=== PATIENT | female | born 1935 | race Caucasian/White ===

== ENCOUNTER 2024-05-28 06:03 | Day surgery (SDC) | payer MEDICARE, SELFPAY ==
[2024-05-13 08:43] VITALS: BMI 32.9
[2024-05-28] VITALS (15 sets, daily range): BP systolic 133–190; BP diastolic 60–95; PULSE 60–88; RESP 12–18; TEMP 35.8–36.8; O2SAT 94–98; BMI 32.5
--- NOTE | 2024-05-28 06:00 | DI.RAD.S_ITS ---
PROCEDURE: XR KNEE LT 1TO2V INDICATIONS: TKA TECHNIQUE: 2 view(s) of the knee acquired. COMPARISON: None. FINDINGS: Bones: Patient is status post knee joint arthroplasty. Hardware components are in expected positions. Visualized bony structures are intact. Soft tissues: Overlying postoperative changes are noted. IMPRESSION: Expected post-operative appearance of a knee arthroplasty. Dictated by: David Albarran M.D. on 05/28/2024 at 14:35 Approved by: David Albarran M.D. on 05/28/2024 at 14:35
[2024-05-28] MEDS: ACETAMINOPHEN 325 MG TABLET 975 MG PO (06:56)
[2024-05-28] MEDS: LACTATED RINGERS 1,000 ML 42 ML IV ×2 (06:57→08:57)
[2024-05-28] MEDS: VANCOMYCIN 1,000 MG/200 ML PIGGYBACK 200 MG IV (06:57)
--- NOTE | 2024-05-28 07:37 | PM.PREOP ---
Pre-operative Note Interval Note History & Physical reviewed/Exam performed by Physician: Yes Changes to H&P: No
--- NOTE | 2024-05-28 07:44 | PM.OP.1 ---
Operative Date/Time/Diagnoses Date of procedure: 05/28/24 Time of procedure: 07:44 Pre-op diagnosis: left knee OA Post-op diagnosis: same Procedure & Clinicians Procedure: Left total knee arthroplasty Same procedure as scheduled: Yes Indications: The patient has had progressively worsening left knee pain with radiographic changes consistent with arthritis. Non-operative management has failed and the patient has requested total knee replacement. The risks, benefits and alternatives to surgery were discussed with the patient prior to proceeding. Risks discussed included, but were not limited to, failure to relieve pain, stiffness, infection, nerve damage, deep venous thrombosis, pulmonary embolism, stroke, coma, heart attack, permanent paralysis and , as well as the potential need for eventual revision of the prosthetic. Surgeon: Claudia Davison Platform Material Handling Supervisor: Alejo Santiago Anesthesia Type: General and Peripheral nerve block Operative Notes Findings: Severe left knee osteoarthritis, adequate bone, good stability Closure Type: primary Specimen(s): none sent Prosthetic devices, grafts, tissues, transplants, or devices: Davison and nephew deirdreney BCS 2 size 5 femur, size 4 tibia, +10 poly, 32 x 7.5 mm patella Estimated Blood Loss (mL): 250 Blood products transfused: none Tourniquet time (min): 96 Procedure in detail: The patient was seen in the pre-operative area, where the patient identified the left knee as the operative site and this was marked with my initials. The patient received pre-operative antibiotics, and was taken to the operating room and placed on the operative table in the supine position. After satisfactory anesthesia, a timers inspector out was performed. The left leg was encircled with a tourniquet about the proximal thigh, and the leg was prepared from the toes to the tourniquet with ChloroPrep in the usual fashion and draped through sterile drapes. The leg was elevated and exsanguinated with Eschmark bandage and the tourniquet inflated to [250] mmHg pressure. A PA was used during the procedure was essential for intraoperative retraction and safe implantation of the components. The left knee was approached through an approximately 18 cm incision centered over the patella and carried into the knee through a medial parapatellar arthrotomy. Portion of the medial and lateral meniscus was resected. Soft tissue was carefully mobilized around the patella the patella was measured with a caliper. Bone was resected from the patella and the patellar height was reconstituted with up an appropriate sized patellar component. A cover was then placed on the patella. A small amount of additional medial and lateral meniscus was resected. Pins were placed in the femur for Cori robotic navigated knee replacement and tibial guide was attached to the tibia. The patient was placed through range of motion and the knee was meticulously mapped. A plan was taken and developed was stressed range of motion and the alignment in order to optimize knee function. The Cori robotic bur was used for the distal femoral resection. It looked like an appropriate distal femoral cut and the cut was made without difficulty. The rotation was assessed and the appropriate size femoral guide was placed on the distal femur and finishing cuts were made. There was no evidence of notching. The anterior, posterior and chamfer cuts were then made. The posterior osteophytes and soft tissues were then removed. The posterior capsule was injected with part of a mixture of 60 ml 0.25% Marcaine mixed with 266 mg Exparel for post operative pain control. The remainder of this mixture was injected into the capsule and subcutaneous tissues during cement curing. The tibia was prepared by navigating the alignment of the proximal tibial guide. The cut was made without difficulty. The rotation was assessed. The patient was placed in extension residual medial and lateral meniscus as well as any residual bone was carefully resected. [No] additional tibia was resected. Hemostasis was achieved especially posteriorly. Additional local was injected into the posterior capsule. The extension gap was assessed. The femoral component was trial was placed and the notch was finished. Trial tibial and femoral components were then placed and the knee placed through a range of motion. Range of motion was [0-130], with good stability throughout the range. The trials were then removed, and the tibia was finished. The bone was prepared with pulsatile lavage, and dried with a sponge. Cement was applied and the final prosthetics placed. Excess cement was removed during and after cement curing. A brief Betadine soak was performed. After confirming there was no extruded cement posteriorly, the final tibial insert was placed. The knee was copiously irrigated and the tourniquet deflated. Hemostasis was obtained with the Bovie cautery. The capsule was closed with interrupted # 1 Vicryl suture. The subcutaneous layer was closed with barbed sutures, and the skin with a running 3-0 V-Lock suture and Surgical glue. An Aquacel Ag dressing was applied and the patient was taken to recovery having tolerated the procedure well. Complications: none Post-operative Condition: stable Disposition: Acute Care Plan for aftercare: The patient will be maintained on a standard total knee replacement protocol with weight bearing as tolerated. The patient will receive aspirin and sequential compression devices for DVT prophylaxis. The patient will be discharged home when safe for the home environment.
--- NOTE | 2024-05-28 07:57 | SUR.PREOP ---
Block start time [0744] . Monitoring initiated and maintained throughout procedure. Oxygen and medications given per anesthesiologist instructions. Patient remained stable throughout procedure, no adverse reactions noted. Block end time [0757].
[2024-05-28] MEDS: CEFAZOLIN 2 GM/100 ML PREMIX 100 ML IV ×3 (08:20→19:54)
[2024-05-28] MEDS: TRANEXAMIC ACID 1,000 MG VIAL 1000 MG INJ ×2 (08:21→10:09)
--- NOTE | 2024-05-28 08:41 | SUR.OPER ---
Supine on padded OR bed. Pillow under head, arms secured on padded armboards <90 degree abduction. Safety belt across torso. Non-operative leg secured with tape over blanket over lower leg. Operative leg secured in Tay positioner. Foam padded brace at thigh of operative leg.
[2024-05-28] MEDS: BUPIVACAINE LIPOSOME 266 MG/20 ML VIAL INJ (08:55)
[2024-05-28] MEDS: BUPIVACAINE 0.25% (PF) 30 ML, EPINEPHrine 0.15 MG INJ (08:56)
[2024-05-28] MEDS: HYDROMORPHONE 1 MG INJ IV ×2 (10:52→10:57)
[2024-05-28] MEDS: hydrOXYzine 50 MG/ML INJ 25 MG IM (10:58)
[2024-05-28] MEDS: HYDROCODONE/ACET 5/325 TABLET 1 TAB PO ×4 (11:05→22:01)
[2024-05-28] MEDS: LACTATED RINGERS 1,000 ML 100 ML IV (11:52)
--- NOTE | 2024-05-28 14:50 | PT.IIE ---
Current Diagnoses Unilateral primary osteoarthritis, left knee (05/28/24) Surgery Performed Operation Date: 05/28/24 07:45 Actual Procedures p Total Knee Arthroplasty - Robot(Left) - Claudia Davison MD Surgical History (Last Reviewed 05/28/24 @ 06:52 by Fernanda Moreno, WINIFRED) History of appendectomy (~2000) History of bilateral carpal tunnel release (~2002) History of lumpectomy of left breast (04/2023) History of tonsillectomy History of total knee arthroplasty (~2010) Hx of bilateral cataract extraction S/P lumbar spinal fusion (~2009) Medical History (Last Updated 05/13/24 @ 09:24 by Allie Francisco RN) Breast cancer, left (01/2023) Chronic kidney disease (CKD) Excessive daytime sleepiness Grief Hearing decreased Hyperlipidemia Hypertension Obstructive sleep apnea of adult Osteoarthritis Primary insomnia Seasonal allergies Snoring Stool incontinence Physical Therapy Inpatient Evaluation/Re-Eval M1 PT/OT-IP Prior Functional Status Start: 05/28/24 17:10 Freq: NEEDED Status: Active Protocol: Document 05/28/24 14:50 AB (Rec: 05/28/24 17:24 AB [id number]) Medical Review Prior Functional Status Medical History Reviewed Yes Communication able t make needs known Mobility and Gait pt stated that she was independent with all mobilities and ambulation without AD indoors but uses a SPC for outdoor mobility Social History Household Members none Living Arrangements House Number of Floors (Floors) Two Floors Number of Stairs To Enter/Railing? pt stays on the main level of the house has a ramp to enter the house Home Environment High Toilet,Walk in Shower,Tub /Shower,Ramp Home Equipment Front Wheel Walker,Straight Cane,Shower Seat without Backrest,Hand Held Shower,Grab Bars Near Toilet,Grab Bars In Shower Additional Social History Comment pt stated that her son and son 's will be staying with her until monday and afterwards, she has friends/ families that are scheduled to come to assist her pt has an outdoor walk-in shower; the indoor shower is a tub shower M2 PT-IP Current Condition Start: 05/28/24 17:10 Freq: NEEDED Status: Active Protocol: Document 05/28/24 14:50 AB (Rec: 07/16/24 17:24 AB [id number]) Physical Therapy Current Condition Current Condition Evaluation Date 05/28/24 Treatment Diagnosis s/p L TKA ;difficulty in walking Onset Date 05/28/24 M3 PT-IP Subjective Start: 05/28/24 17:10 Freq: NEEDED Status: Active Protocol: Document 05/28/24 14:50 AB (Rec: 05/28/24 17:24 AB [id number]) Subjective Physical Therapy Visit Type Type Initial Evaluation Visit Start Time 14:50 Visit Stop Time 15:55 Number of PRACTICE PHYSICIAN Visits 0 Physical Therapy Visit Comments Patient Comments agreeable to do PT Therapy Pain Assessment Pain When Pain Assessed At Rest Pain Present Pain Present Pain Reported Location Left Knee Intensity 8 Scale Used Numeric (0 - 10) Pain Behaviors Guarding,Holding Area Pain Management Techniques Apply Cold,Distraction, Modification of Treatment,Re- positioning,Timing of Activity with Medications M4 PT-IP Mobility and Gait Start: 05/28/24 17:10 Freq: NEEDED Status: Active Protocol: Document 05/28/24 14:50 AB (Rec: 05/28/24 17:24 [id number]) PT-Bed Mobility Assessment Supine to Sit Supine to Sit Contact Guard Assistance PT-Transfer Assessment Sit to and From Stand Sit to and from Stand Minimal Assistance,Moderate Assistance,1 Person Assistance ,Use of Upper Extremities Equipment Transfer Assistive Device Gait Belt,Front Wheeled Walker Orthotic/Prosthetic Devices or Brace: No Transfers Transfer Destination Toilet Transfer Technique ambulated Transfer Ability Level of Assist Minimal Assistance,1 Person Assistance,Use of Upper Extremities Comments Mobility Comments pt supine in bed and asleeps. woke pt up and pt agreed to do PT. obtained PLOF and home set up from pt. post-op folder provided and reviewed contents and HEP. BP in supine: 147/69. pt completed supine to sit CGA and cues. pt able to sit on EOB SBA. BP sittin/68. completed sit to stand min A and cues. cued for L quads activation. pt ambulated in room ~ 10 ft and requested to use the toilet. pt ambulated to the toilet using FWW min A and cues. min to mod A for controlled descent to the toilet. completed sit to stand from the toilet using grab bar min A and cues. pt ambulated towards the chair using fWW ~ 20 ft min A and cues. pt difficulty following instructions and affecting safety. positioned pt on the chair. call light and table placed within reach. caregiver training set up with pt ~ 9 am tomorrow and pt will inform her son and DIL. Gait Assessment Gait Gait Assistance Required: Minimum Assistance,1 Person Assist Distance (Feet) 20 Able to Maintain Weight Bearing Status Yes During Gait Assistive Devices Assistive Device Gait Belt,Front Wheeled Walker Orthotic/Prosthetic Devices or Brace: No Gait Deviations General Gait Pattern Antalgic,Decreased Stride Length,Decreased Feet Clearance Factors Limiting Gait Function Factors Limiting Gait Function Decreased Activity Tolerance, Decreased Strength,Difficulty Following Directions,Limited Range of Motion,Pain,Poor Balance,Poor Safety Awareness PT-Balance Assessment Sitting Balance and Reactions Static Sitting Balance Ability Good Dynamic Sitting Balance Ability Good Standing Balance and Reactions Static Standing Balance Ability Fair Dynamic Standing Balance Ability Fair Device Used FWW M5 PT-IP Objective Assessments Start: 05/28/24 17:10 Freq: NEEDED Status: Active Protocol: Document 05/28/24 14:50 AB (Rec: 05/28/24 17:24 AB [id number]) Orientation Orientation/Cognition Level of Alertness Alert Safety Awareness Decreased Safety Awareness Memory Description Short Term Impaired Gross Range of Motion Lower Extremity ROM Impairments L knee flexion: ~ 70 deg Strength Lower Extremity Strength Assessment Left Impaired Hip 4-/5 Knee 3+/5 Coordination Assessment Gross Coordination Gross Coordination WNL Sensation Assessment Sensation Gross Sensation WNL Muscle Tone Muscle Tone WNL Yes M6 PT-IP Treatment Start: 05/28/24 17:10 Freq: NEEDED Status: Active Protocol: Document 05/28/24 14:50 AB (Rec: 05/28/24 17:24 AB [id number]) Physical Therapy Treatment Exercises Exercises Heel Slides Education Education Provided Precautions,Weight Bearing Status,Post-Op Packet,Safety M7 PT-IP Assessment and Plan Start: 05/28/24 17:10 Freq: NEEDED Status: Active Protocol: Document 05/28/24 14:50 AB (Rec: 05/28/24 17:24 AB [id number]) PT Summary Assessment and Plan Potential Rehabilitation Potential Fair Status of Condition at Evaluation Evolving Summary Impairments Pain,ROM,Strength,Balance, Coordination,Sensation,Tone, Cognition,Bed Mobility, Transfers,Gait,Activity Tolerance Assessment Summary pt is an 88 y/o F s/p L TKA POD 0. pt is WBAT on LLE. pt requiring min A and max cues for transfers and ambulation using FWW. pt required cues for L quads activation and safety. pt plans to go home and her son and daughter-in- law will assister her at home. pt has outpt PT set up. caregiver training set up for tomorrow at 9am. will continue to assess. Goals Bed Mobility Goal Independent Transfer Goal Independent,Front Wheeled Walker Gait Goal Independent,Front Wheel Walker Gait Distance 200 Days to Meet Goals 5 Frequency of Treatment Frequency Of Treatment Twice a Day Treatment Plan Physical Therapy Treatment Plan Bed Mobility Training,Transfer Training,Gait Training, Therapeutic Exercise,Balance Retraining,Post Op Education, Discharge Planning,Hot or Cold Pack,Neuromuscular Re-ed, Coordination Retraining,Manual Therapy Weight Bearing Status Weight Bearing Status Weight Bear as Tolerated Allowed Weight Bearing Amount (enter % LLE WBAT or #) (%) Recommendations To Nursing Amount of Assist Needed 1 Person Assist Discharge Recommendations PT Discharge Recommendations Home with Assistance, Outpatient PT Transportation Needs at Discharge Private Vehicle
--- NOTE | 2024-05-28 16:57 | OT.IP.EVAL ---
Current Diagnoses Unilateral primary osteoarthritis, left knee (05/28/24) Surgery Performed Operation Date: 05/28/24 07:45 Actual Procedures p Total Knee Arthroplasty - Robot(Left) - Claudia Davison MD Past Medical History (Last Updated 05/13/24 @ 09:24 by Allie Francisco, RN) Breast cancer, left (01/2023) Chronic kidney disease (CKD) Excessive daytime sleepiness Grief Hearing decreased Hyperlipidemia Hypertension Obstructive sleep apnea of adult Osteoarthritis Primary insomnia Seasonal allergies Snoring Stool incontinence Surgical History (Last Reviewed 05/28/24 @ 06:52 by Fernanda Moreno RN) History of appendectomy (~2000) History of bilateral carpal tunnel release (~2002) History of lumpectomy of left breast (04/2023) History of tonsillectomy History of total knee arthroplasty (~2010) Hx of bilateral cataract extraction S/P lumbar spinal fusion (~2009) Occupational Therapy Inpatient Evaluation/Re-Eval M2 OT-IP Current Condition Start: 05/28/24 17:00 Freq: Status: Active Protocol: Document 05/28/24 17:00 [facility] (Rec: 05/28/24 17:12 [facility] [id number]) Occupational Therapy Current Condition Current Condition Evaluation Date 05/28/24 Treatment Diagnosis S/P L TKA Diagnosis Onset Date 05/28/24 M3 OT- IP Subjective and Pain Start: 05/28/24 17:00 Freq: Status: Active Protocol: Document 05/28/24 17:00 [facility] (Rec: 05/28/24 17:12 [facility] [id number]) OT- Subjective Occupational Therapy Visit Type Type Initial Evaluation Visit Start Time 16:15 Visit Stop Time 16:57 Occupational Therapy Visit Comments Patient Comments Pt wanting to get up to use the bathroom. Patient/Caregiver Goals TO go home. OT Pain Assessment Pain When Pain Assessed During Mobility Pain Present Pain Present Pain Reported Location Left Knee Intensity 8 Scale Used Numeric (0 - 10) M4 OT- IP ADL's Start: 05/28/24 17:00 Freq: Status: Active Protocol: Document 05/28/24 17:00 [facility] (Rec: 05/28/24 17:12 [facility] [id number]) OT [id number] Comments OT Self-Feeding Comments No issues anticipated. OT ADL-Grooming Comments OT Grooming Comments Not performed. OT ADL-Oral Care Comments Oral Care Comments Not performed. OT ADL-Dressing General Eval Lower Body Dressing Ability Maximum Assistance Areas Needing Assistance Socks Comments OT Dressing Comments Able to go over LB dressing equipment. Educated pt to be mindful of her left knee positioning during ADL needs. Educated to dress the LLE first and take out last. OT ADL-Toileting General Evaluation Toileting Ability Minimal Assistance Areas Needing Assistance Manage Clothing Comments OT Toileting Comments Assist for brief management needs and CGA for balance while standing. Suggested pt get a bidet for increased ease for hygiene needs. Pt states already uses wet one and pads at home. OT ADL-Bathing Comments OT Bathing Comments Pt will benefit from assist at home. M5 OT- IP IADL's Start: 05/28/24 17:00 Freq: Status: Active Protocol: Document 05/28/24 17:00 [facility] (Rec: 05/28/24 17:12 [facility] [id number]) OT-Instrumental Activities of Daily Living Deficits IADL Deficits Identified Deficits Home Safety Awareness Awareness of Need for Assistance at Home Good Awareness Ability to Problem Solve Emergency Able to Problem Solve Situations Medication Management Medication Management No Deficits Identified Money Management Money Management No Deficits Identified Meal Preparation Meal Preparation Caregiver Provides Assist Direct Care Professional Direct Care Professional Caregiver Provides Assist M6 OT- IP Functional Cognition Start: 05/28/24 17:00 Freq: Status: Active Protocol: Document 05/28/24 17:00 [facility] (Rec: 05/28/24 17:12 [facility] [id number]) Cognitive Factors Limiting Selfcare Function Cognitive Ability Level of Alertness Alert Patient Orientation Name,Age,Birthday,Month,Date, Year,Day of Week,Place, Situation Attention Span Ability Capable of Focused Attention, Capable of Sustained Attention Ability to Follow Commands Able to Follow One Step Commands Cognitive Comments Cognitive Assessment Comments Pt able to follow commands for ADL and mobility needs. OT- Vision and Hearing OT- Hearing Assessment OT- Hearing Assessment Hearing Impaired OT- Vision Assessment Visual Acuity Glasses All The Time Visual Attentiveness WFL Occular Pursuits WFL M7 OT- IP Mobility and Balance Start: 05/28/24 17:00 Freq: Status: Active Protocol: Document 05/28/24 17:00 [facility] (Rec: 05/28/24 17:12 [facility] [id number]) OT-Transfer Assessment Sit to and From Stand Sit to and from Stand Standby Assistance,Contact Guard Assistance,Minimal Assistance Transfers Transfer Ability Standby Assistance Technique Transfer Destination Chair,Toilet Transfer Technique Stand Step Pivot Devices Transfer Assistive Devices Gait Belt,Front Wheeled Walker Comments Mobility Comments Pt needing CGA to ROBBIN to stand to the FWW. ROBBIN to help lower her to lower surfaces. Pt heavily relies on her BUE on the FWW. Pt needing occasional cues to move the FWW first, then her LLE and the RLE when walking with the FWW. OT- Balance Assessment Sitting Balance and Reactions Static Sitting Balance Ability Good Dynamic Sitting Balance Ability Good Standing Balance and Reactions Static Standing Balance Ability Fair Dynamic Standing Balance Ability Fair M8 OT- IP Objective Assessments Start: 05/28/24 17:00 Freq: Status: Active Protocol: Document 05/28/24 17:00 [facility] (Rec: 05/28/24 17:12 [facility] [id number]) OT Gross Range of Motion Upper Extremity Range of Motion ROM Impairments WFL for needs. OT Strength Comments Strength Comments WFL for needs. M9 OT- IP Assessment and Plan Start: 05/28/24 17:00 Freq: Status: Active Protocol: Document 05/28/24 17:00 [facility] (Rec: 05/28/24 17:12 [facility] [id number]) OT Summary Assessment and Plan Potential Rehabilitation Potential Excellent Analytic Complexity at Evaluation Low Summary OT Impairments Pain,Balance,Functional Mobility,Grooming,Dressing, Toileting,Bathing,Toilet Transfers,Shower Transfers, Activity Tolerance Progress Towards Goals Progressing Toward Goals Assessment Summary Pt low complexity and main barriers are pain and decreased activity tolerance. Pt looking to go home with her son and daughter in law to assist. Pt already has outpt PT appointment set-up. Pt wanting to work on dressing needs again prior to caregiver training with PT tomorrow at 9AM. Goals Self-Feeding Goal Independent Grooming Goal Independent Dressing Goal Independent,Marriage And Family Therapist,Sock Aid Toileting Goal Independent Bathing Goal Standby Assistance Toilet Transfer Goal Independent Shower Transfer Goal Standby Assistance Days to Meet Goals 5 Frequency of Treatment Frequency Of Treatment Once a Day Treatment Plan OT Treatment Plan ADL Training,Functional Mobility,Patient/Family Education,Discharge Planning Discharge Recommendations OT Discharge Recommendations Home with 05/06 Assist Available,Outpatient PT Home Equipment Needs sock aid, long handled sponge Transportation Needs at Discharge Private Vehicle
[2024-05-28] MEDS: ACETAMINOPHEN 325 MG TABLET 650 MG PO (19:59)
[2024-05-28] MEDS: ATORVASTATIN 20 MG TABLET 10 MG PO (21:57)
[2024-05-28] MEDS: DOCUSATE 100 MG CAPSULE PO (21:57)
[2024-05-28] MEDS: METOPROLOL ER 50 MG TABLET 100 MG PO (22:00)
[2024-05-28] MEDS: ASPIRIN EC 81 MG TABLET PO (22:01)
[2024-05-28] MEDS: LOSARTAN 50 MG TABLET PO (22:01)
[2024-05-28] MEDS: LETROZOLE 2.5 MG TABLET PO (22:02)
[2024-05-29 00:10] VITALS: BP 121/65; PULSE 76; RESP 16; TEMP 36.5; O2SAT 95
[2024-05-29] MEDS: HYDROCODONE/ACET 5/325 TABLET 1 TAB PO ×3 (01:25→08:33)
[2024-05-29] MEDS: LACTATED RINGERS 1,000 ML 100 ML IV (01:26)
[2024-05-29 01:32] VITALS: BP 153/73; PULSE 71
[2024-05-29 05:24] VITALS: BP 139/86; PULSE 71; RESP 16; TEMP 36.3; O2SAT 97
[2024-05-29 06:23] LABS: Hematocrit 33.4 % (36-46); Hemoglobin 11.5 g/dL (12.0-16.0)
[2024-05-29 08:00] VITALS: BP 148/69; PULSE 71; RESP 16; TEMP 36.4; O2SAT 98
--- NOTE | 2024-05-29 08:12 | PM.PNPO.1 ---
Subjective Subjective Date Patient Seen: 05/29/24 Time Patient Seen: 08:13 Exam Vital Signs (past 8 hours): - 05/29/24 01:32 05/29/24 05:24 Temperature 97.4 F L Pulse Rate 71 71 Respiratory Rate 16 Blood Pressure 153/73 H 139/86 Pulse Oximetry 97 Oxygen Flow Rate 0 Oxygen Delivery Method Nasal Cannula Oxygen Flow Rate 0 Objective Labs 05/29/24 06:12 Labs: Laboratory Results - last 24 hr 05/29/24 06:12 Hgb 11.5 L Hct 33.4 L PFSH Medical History (Updated 05/13/24 @ 09:24 by Allie Francisco RN) Stool incontinence Grief Osteoarthritis Hearing decreased Breast cancer, left (01/2023) Seasonal allergies Chronic kidney disease (CKD) Hyperlipidemia Hypertension Excessive daytime sleepiness Primary insomnia Snoring Obstructive sleep apnea of adult Surgical History Hx of bilateral cataract extraction History of lumpectomy of left breast (04/2023) History of tonsillectomy History of appendectomy (~2000) S/P lumbar spinal fusion (~2009) History of bilateral carpal tunnel release (~2002) History of total knee arthroplasty (~2010) Social History marital status: details: 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
--- NOTE | 2024-05-29 08:21 | P.DS_ITS ---
History of Present Illness History of Present Illness Date Patient Seen: 05/29/24 Time Patient Seen: 08:12 Chief complaint: SDC Narrative: Operative Date/Time/Diagnoses Date of procedure: 05/28/24 Time of procedure: 07:44 Pre-op diagnosis: left knee OA Post-op diagnosis: same Procedure & Clinicians Procedure: Left total knee arthroplasty Same procedure as scheduled: Yes Indications: The patient has had progressively worsening left knee pain with radiographic changes consistent with arthritis. Non-operative management has failed and the patient has requested total knee replacement. The risks, benefits and alternatives to surgery were discussed with the patient prior to proceeding. Risks discussed included, but were not limited to, failure to relieve pain, stiffness, infection, nerve damage, deep venous thrombosis, pulmonary embolism, stroke, coma, heart attack, permanent paralysis and , as well as the potential need for eventual revision of the prosthetic. Surgeon: Claudia Davison Contingents Supervisor: Alejo Santiago Anesthesia Type: General and Peripheral nerve block Operative Notes Findings: Severe left knee osteoarthritis, adequate bone, good stability Closure Type: primary Specimen(s): none sent Prosthetic devices, grafts, tissues, transplants, or devices: Davison and nephew deirdreney BCS 2 size 5 femur, size 4 tibia, +10 poly, 32 x 7.5 mm patella Estimated Blood Loss (mL): 250 Blood products transfused: none Tourniquet time (min): 96 Discharge Providers Provider Date of admission: 05/28/24 Discharge Date: 05/29/24 Primary care physician: Brenda Lugo MD Consults: 05/15/24 12:22 Consult to Anesthesiology Routine Comment: Consulting Provider: Anesthesiologist Reason for consultation: Surgeon requested re: Comorbidities 05/28/24 06:00 Consult to Anesthesiology Routine Comment: Consulting Provider: Anesthesiologist Reason for consultation: Regional block for post operative pain control 05/28/24 11:21 Consult to Discharge Planning Routine Comment: Consult to Occupational Therapy Evaluate & Treat Comment: Physician Instructions: Evaluate and treat Consult to Physical Therapy Evaluate & Treat Comment: Physician Instructions: postop TKA protocol Discharge provider: Tenzin Aguilar PA-C Summary Hospital Course Discharge Diagnosis: Status post left knee total arthroplasty Hospital Course: Multi-modal pain control. PT Status at Discharge Cognitive/behavioral status at discharge: oriented Functional status at discharge: uses cane/walker Time Spent with Patient Time spent: Less than 30 minutes Exam Vital Signs (past 8 hours): - 05/29/24 01:32 05/29/24 05:24 Temperature 97.4 F L Pulse Rate 71 71 Respiratory Rate 16 Blood Pressure 153/73 H 139/86 Pulse Oximetry 97 Oxygen Flow Rate 0 Oxygen Delivery Method Nasal Cannula Oxygen Flow Rate 0 Narrative Exam Narrative: Patient is found sitting in bed eating her breakfast comfortably. He is controlled with oral medications. She has been able to get up and ambulate with physical therapy. Denies any fever chills nausea vomiting. Denies any numbness tingling of the left leg. 5/5 strength in hip flexors, quadriceps, hamstrings, DF, PF, EHL bilaterally. Sensation to light touch intact throughout BLE. Calves soft, compressible, nontender. Resp Effort & Inspection: normal respiratory effort and able to speak in complete sentences Objective Labs 05/29/24 06:12 Labs: Laboratory Results - last 24 hr 05/29/24 06:12 Hgb 11.5 L Hct 33.4 L PFSH Medical History (Updated 05/13/24 @ 09:24 by Allie Francisco RN) Stool incontinence Grief Osteoarthritis Hearing decreased Breast cancer, left (01/2023) Seasonal allergies Chronic kidney disease (CKD) Hyperlipidemia Hypertension Excessive daytime sleepiness Primary insomnia Snoring Obstructive sleep apnea of adult Surgical History Hx of bilateral cataract extraction History of lumpectomy of left breast (04/2023) History of tonsillectomy History of appendectomy (~2000) S/P lumbar spinal fusion (~2009) History of bilateral carpal tunnel release (~2002) History of total knee arthroplasty (~2010) Social History marital status: details: 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 Weightbearing as tolerated with assistive device Aspirin 81mg twice per day for DVT prophylaxis for 6 weeks. Multimodal pain control. Postop medications have already been prescribed and instructed in use. Start outpatient physical therapy in 7-10 days. ?Follow up at [facility] in 2 weeks Discharge Plan Discharge Plan Patient Disposition: Home Discharge orders & Medications Discharge Orders: Discharge (Order); Ordered 05/29/24 Ordered By: Tenzin Aguilar Prescriptions: Continued fluoxetine 10 mg Tablet 10 mg PO BEDTIME acetaminophen 650 mg Tablet Extended Release 650 mg PO DAILY PRN (Reason: Pain) Patient Comments: 975 mg po given in Pre-op niacinamide 500 mg Tablet 500 mg PO BEDTIME letrozole 2.5 mg Tablet 2.5 mg PO BEDTIME (DME) Respironics Dreamstation CPAP Qty: 1 Dose Instruction: As directed Patient Comments: Pressure: 5-10 cmH2O DME: [facility] Rx Instructions: As directed losartan 50 mg tablet 50 mg PO BEDTIME metoprolol succinate 100 mg tablet extended release 24 hr 100 mg PO BEDTIME simvastatin 20 mg tablet 20 mg PO BEDTIME levocetirizine [Xyzal] 5 mg tablet 5 mg PO QPM PRN (Reason: Seasonal allergies) Follow up/Referrals: Brenda Lugo MD [Primary Care Provider] - Claudia Davison MD [Physician] - 06/07/24 11:00 am (Follow up w/ CARLEY Love, at [facility] in [place].) Diet/Activity/Treatments Diet: Diet as Tolerated Activity: Weightbearing as tolerated. Walk frequently! Cold/Heat Therapy: Ice to knee as needed for pain. Skin/Wound/Dressing Care Report to your healthcare provider any signs of infection, such as:: chills, fever, unusual drainage and unusual redness Dressing: May remove LINNEA wrap and shower on 05/31/2024. Keep dressing in place until follow up in office. No bathing or otherwise soaking incision. Call the office if dressing becomes saturated inside. Visit Report/Discharge Packet Instructions: DI for Knee Replacement Stand Alone Forms: Patient Portal/API, Surgery Discharge Discharge Data Primary Care Provider: Brenda Lugo Attending Provider: Claudia Davison Quality VTE Deep Vein Thrombosis/Pulmonary Embolism Present on Admission: No
[2024-05-29] MEDS: DOCUSATE 100 MG CAPSULE PO (08:33)
[2024-05-29] MEDS: ASPIRIN EC 81 MG TABLET PO (08:33)
--- NOTE | 2024-05-29 08:55 | OT.IP.TRT ---
Current Diagnoses Unilateral primary osteoarthritis, left knee (05/28/24) Surgery Performed Operation Date: 05/28/24 07:45 Actual Procedures p Total Knee Arthroplasty - Robot(Left) - Claudia Davison MD Occupational Therapy Treatment Note M2 OT-IP Current Condition Start: 05/28/24 17:00 Freq: Status: Discharge Protocol: Document 05/28/24 17:00 [facility] (Rec: 05/28/24 17:12 [facility] [id number]) Occupational Therapy Current Condition Current Condition Evaluation Date 05/28/24 Treatment Diagnosis S/P L TKA Diagnosis Onset Date 05/28/24 M3 OT- IP Subjective and Pain Start: 05/28/24 17:00 Freq: Status: Discharge Protocol: Document 05/29/24 08:55 [facility] (Rec: 05/29/24 10:44 [facility] [id number]) OT- Subjective Occupational Therapy Visit Type Type Treatment Note Visit Start Time 08:55 Visit Stop Time 09:20 Occupational Therapy Visit Comments Patient Comments Pt wanting to get dressed and use the bathroom. Patient/Caregiver Goals To go home. OT Pain Assessment Pain When Pain Assessed At Rest Pain Present Pain Present Pain Reported Location Left Knee Intensity 8 Scale Used Numeric (0 - 10) M4 OT- IP ADL's Start: 05/28/24 17:00 Freq: Status: Discharge Protocol: Document 05/29/24 08:55 [facility] (Rec: 05/29/24 10:44 [facility] [id number]) OT HGC-Pzea-Ryzxlkz General Evaluation Self-Feeding Ability Independent OT ADL-Grooming Comments OT Grooming Comments Not performed. OT ADL-Oral Care Comments Oral Care Comments Not performed. OT ADL-Dressing General Eval Lower Body Dressing Ability Minimal Assistance Areas Needing Assistance Shoes Comments OT Dressing Comments Pt able to use rug dyer to assist with brief and pants needs. OT ADL-Toileting General Evaluation Toileting Ability Minimal Assistance Areas Needing Assistance Manage Clothing Comments OT Toileting Comments Assist from daughter in law to help pull up the brief in the back. OT ADL-Bathing Comments OT Bathing Comments Pt will have assist at home. M5 OT- IP IADL's Start: 05/28/24 17:00 Freq: Status: Discharge Protocol: Document 05/28/24 17:00 [facility] (Rec: 05/28/24 17:12 [facility] [id number]) OT-Instrumental Activities of Daily Living Deficits IADL Deficits Identified Deficits Home Safety Awareness Awareness of Need for Assistance at Home Good Awareness Ability to Problem Solve Emergency Able to Problem Solve Situations Medication Management Medication Management No Deficits Identified Money Management Money Management No Deficits Identified Meal Preparation Meal Preparation Caregiver Provides Assist Machine Milker Machine Milker Caregiver Provides Assist M6 OT- IP Functional Cognition Start: 05/28/24 17:00 Freq: Status: Discharge Protocol: Document 05/29/24 08:55 [facility] (Rec: 05/29/24 10:44 [facility] [id number]) Cognitive Factors Limiting Selfcare Function Cognitive Comments Cognitive Assessment Comments Pt able to follow commands for ADL and mobility needs. M7 OT- IP Mobility and Balance Start: 05/28/24 17:00 Freq: Status: Discharge Protocol: Document 05/29/24 08:55 [facility] (Rec: 05/29/24 10:44 [facility] [id number]) OT-Transfer Assessment Sit to and From Stand Sit to and from Stand Standby Assistance,Minimal Assistance Transfers Transfer Ability Standby Assistance Technique Transfer Destination Bed,Chair,Toilet Transfer Technique Stand Step Pivot Devices Transfer Assistive Devices Gait Belt,Front Wheeled Walker Comments Mobility Comments Pt able to get her LLE to the edge of the bed with increased time and use of hands to assist. Spoke of sleeping at with her head at the foot of the bed so able to get out on the left side. Pt's daughter in law able to safely assist pt for all mobility needs. OT- Balance Assessment Sitting Balance and Reactions Static Sitting Balance Ability Good Dynamic Sitting Balance Ability Good Standing Balance and Reactions Static Standing Balance Ability Good Dynamic Standing Balance Ability Fair M8 OT- IP Objective Assessments Start: 05/28/24 17:00 Freq: Status: Discharge Protocol: Document 05/28/24 17:00 [facility] (Rec: 05/28/24 17:12 [facility] [id number]) OT Gross Range of Motion Upper Extremity Range of Motion ROM Impairments WFL for needs. OT Strength Comments Strength Comments WFL for needs. M9 OT- IP Assessment and Plan Start: 05/28/24 17:00 Freq: Status: Discharge Protocol: Document 05/29/24 08:55 [facility] (Rec: 05/29/24 10:44 [facility] [id number]) OT Summary Assessment and Plan Potential Rehabilitation Potential Excellent Analytic Complexity at Evaluation Low Summary OT Impairments Pain,Balance,Functional Mobility,Grooming,Dressing, Toileting,Bathing,Toilet Transfers,Shower Transfers, Activity Tolerance Progress Towards Goals Progressing Toward Goals Assessment Summary Pt doing well and her daughter in law able to participate in caregiver training and able to demonstrate good safety and awareness for all pt's needs. Pt to go home with 24/7 available assist and have outpt PT. Goals Self-Feeding Goal Independent Grooming Goal Independent Dressing Goal Independent,Corporate Manager,Sock Aid Toileting Goal Independent Bathing Goal Standby Assistance Toilet Transfer Goal Independent Shower Transfer Goal Standby Assistance Days to Meet Goals 4 Frequency of Treatment Frequency Of Treatment Once a Day Treatment Plan OT Treatment Plan ADL Training,Functional Mobility,Patient/Family Education,Discharge Planning Discharge Recommendations OT Discharge Recommendations Home with 24/7 Assist Available,Outpatient PT Home Equipment Needs sock aid, long handled sponge Transportation Needs at Discharge Private Vehicle
--- NOTE | 2024-05-29 09:21 | PT.IPTN ---
Current Diagnoses Unilateral primary osteoarthritis, left knee (05/28/24) Surgery Performed Operation Date: 05/28/24 07:45 Actual Procedures p Total Knee Arthroplasty - Robot(Left) - Claudia Davison MD Physical Therapy Treatment Note M2 PT-IP Current Condition Start: 05/28/24 17:10 Freq: NEEDED Status: Active Protocol: Document 05/28/24 14:50 AB (Rec: 05/28/24 17:24 AB [id number]) Physical Therapy Current Condition Current Condition Evaluation Date 05/28/24 Treatment Diagnosis s/p L TKA ;difficulty in walking Onset Date 05/28/24 M3 PT-IP Subjective Start: 05/28/24 17:10 Freq: NEEDED Status: Active Protocol: Document 05/29/24 10:13 TS (Rec: 05/29/24 10:23 TS [id number]) Subjective Physical Therapy Visit Type Type Treatment Note Visit Start Time 09:21 Visit Stop Time 09:44 Number of VENTILATING EXPERT Visits 1 Physical Therapy Visit Comments Patient Comments Pt found sitting in chair, just worked with OT, DIL present for caregiver training . Therapy Pain Assessment Pain When Pain Assessed At Rest Pain Present Pain Present Pain Reported M4 PT-IP Mobility and Gait Start: 05/28/24 17:10 Freq: NEEDED Status: Active Protocol: Document 05/29/24 10:13 TS (Rec: 05/29/24 10:23 TS [id number]) PT-Bed Mobility Assessment Supine to Sit Supine to Sit Contact Guard Assistance Sit to Supine Sit to Supine Minimal Assistance,1 Person Assistance Scooting Scooting to Edge of Bed Standby Assistance PT-Transfer Assessment Sit to and From Stand Sit to and from Stand Contact Guard Assistance Equipment Transfer Assistive Device Gait Belt,Front Wheeled Walker Orthotic/Prosthetic Devices or Brace: No Comments Mobility Comments STS from chair CGA with use of FWW, pt demonstrates good carryover of STS sequencing. She ambulated ~80'CGA with slow step to gait and heavy UE assist on FWW. She performed sit to supine Lou for LLE into bed, educated pt on the use of gait belt strap to get LE into bed. Supine to sit CGA with use of gait belt on LLE. She ambulated another ~15' to chair. Pt was educated on ther-ex and use of ice at home . Pt was left in chair, all needs met. Gait Assessment Gait Gait Assistance Required: Contact Guard Assist,1 Person Assist Distance (Feet) 95 Able to Maintain Weight Bearing Status Yes During Gait Assistive Devices Assistive Device Gait Belt,Front Wheeled Walker Orthotic/Prosthetic Devices or Brace: No Gait Deviations General Gait Pattern Antalgic,Decreased Stride Length,Decreased Feet Clearance Factors Limiting Gait Function Factors Limiting Gait Function Decreased Activity Tolerance, Decreased Strength,Difficulty Following Directions,Limited Range of Motion,Pain,Poor Balance,Poor Safety Awareness Comments Gait Comments See mobility comments PT-Balance Assessment Sitting Balance and Reactions Static Sitting Balance Ability Good Dynamic Sitting Balance Ability Good Standing Balance and Reactions Static Standing Balance Ability Fair Dynamic Standing Balance Ability Fair Device Used FWW M5 PT-IP Objective Assessments Start: 05/28/24 17:10 Freq: NEEDED Status: Active Protocol: Document 05/28/24 14:50 AB (Rec: 05/28/24 17:24 AB [id number]) Orientation Orientation/Cognition Level of Alertness Alert Safety Awareness Decreased Safety Awareness Memory Description Short Term Impaired Gross Range of Motion Lower Extremity ROM Impairments L knee flexion: ~ 70 deg Strength Lower Extremity Strength Assessment Left Impaired Hip 4-/5 Knee 3+/5 Coordination Assessment Gross Coordination Gross Coordination WNL Sensation Assessment Sensation Gross Sensation WNL Muscle Tone Muscle Tone WNL Yes M6 PT-IP Treatment Start: 05/28/24 17:10 Freq: NEEDED Status: Active Protocol: Document 05/29/24 10:13 TS (Rec: 05/29/24 10:23 [id number]) Physical Therapy Treatment Education Education Provided Precautions,Weight Bearing Status,Post-Op Packet,Safety M7 PT-IP Assessment and Plan Start: 05/28/24 17:10 Freq: NEEDED Status: Active Protocol: Document 05/29/24 10:13 TS (Rec: 05/29/24 10:23 [id number]) PT Summary Assessment and Plan Potential Rehabilitation Potential Fair Summary Impairments Pain,ROM,Strength,Balance, Coordination,Sensation,Tone, Cognition,Bed Mobility, Transfers,Gait,Activity Tolerance Progress Towards Goals Progressing Toward Goals Assessment Summary Jannet is making progress with her mobility. She progressed her gait to ~95'CGA with FWW. She requires education on bed mobility and use of strap to assist LLE. She demonstrates good carryover of STS sequencing and gait with FWW. PT is recommending home with assist. Goals Bed Mobility Goal Independent Transfer Goal Independent,Front Wheeled Walker Gait Goal Independent,Front Wheel Walker Gait Distance 200 Days to Meet Goals 5 Treatment Plan Physical Therapy Treatment Plan Bed Mobility Training,Transfer Training,Gait Training, Therapeutic Exercise,Balance Retraining,Post Op Education, Discharge Planning,Hot or Cold Pack,Neuromuscular Re-ed, Coordination Retraining,Manual Therapy Weight Bearing Status Weight Bearing Status Weight Bear as Tolerated Allowed Weight Bearing Amount (enter % LLE WBAT or #) (%) Recommendations To Nursing Amount of Assist Needed Standby Assistance Discharge Recommendations PT Discharge Recommendations Home with Assistance, Outpatient PT Transportation Needs at Discharge Private Vehicle
--- NOTE | 2024-05-29 09:33 | CM.DANOTE ---
Initial DCP Assessment Visit Note Reviewed EMR and team rounds for pt's medical status and updates. Met with pt and [id number] at bedside to introduce self and role, pt was found to be sitting upright, alert/oriented and expressing feeling well after surgery, no complications and pain is well managed. Pt resides alone and independently in her own home in Monday. Her family is present and will be taking care of her through Monday, after which she has lined up several friends and their families to continue to take turns staying with her until she can manage independently again. They do have reservations for the noon [employer]. No identified d/c assistance needs from this REGISTERED NURSE at this time. Payor: Morris PAREDES Attending: Dr. Claudia Davison Pt is a 88 year-old F post-op day 1 from a L-total knee replacement. She uses a cane when she is ambulating outside, otherwise no other AD at baseline. She does have a FWW for postoperative recovery, and has already scheduled her OP PT for f/u. She has been medically cleared for home discharge. DCP will continue to monitor for any additional needs prior to her departure. Discharge Planning/Care Management CM Discharge Assessment Start: 05/29/24 09:31 Freq: Status: Active Protocol: Document 05/29/24 09:31 DPL (Rec: 05/29/24 09:33 DPL [id number]) Discharge Planning Assessment Assigned Perinatal Director KELSEY Lisa Advance Directives? Yes Advance Directives on File No History Provided By Patient,Medical Record Has Patient been admitted in last 30 No days? Prior Living Arrangements House Household Members none Type of transporation used prior to Relies on Others admit Independent with ADL's Yes Is patient alert and oriented? Yes Caregiver for Another No DME Already Rented / Owned Elevated Toilet Seat,FWW / Walker,Cane Patient/Family Preference OP PT Therapy Barriers to Discharge No Discharge Plan Home Community Services Physical Therapy Transportation Arrangement Family Referrals Initiated None needed Whiteboard Updated in Patient Room with Yes name and ext. # of Perinatal Director Review Status In Process Please Provide Date Initial DC 05/29/24 Assessment Was Performed Pre-Anesthesia Assessment Start: 05/13/24 08:43 Freq: Status: Active Protocol: Document 05/13/24 08:43 CAB (Rec: 05/13/24 09:38 CAB [id number]) Pre-Anesthesia Assessment Patient Information Reviewed Via Phone Assessment Assessment Completed With Patient Comment Pt needs to do labs/EKG Primary Care Provider Brenda Lugo Comment Clearance form 12/13/23 scanned and in surgery folder Seen Specialist in Last 12 Months Yes Specialist Seen Paving Plant Operator,Oncologist, Opthamologist/Manager Paper, Orthopedist Primary Language Wolof Platform Man Required No Height 160.02 cm Weight 84.368 kg Body Mass Index (BMI) 32.9 Hearing Ability Hearing Impaired Visual Assist Glasses Dentition Type Teeth, Natural Present Barriers to Learning None Hx Anesthesia Reactions No Hx Family Anesthesia Reaction No Hx Malignant Hyperthermia No Hx Blood Transfusions No Anesthesia Review Requested Yes: Surgeon requested re: Comorbidities Belt Conveyor Drier No alcohol intake current alcohol intake frequency a few times a month Smoking Status Never smoker Substance Use Type does not use Pain Present Pain Reported Musculoskeletal Symptoms Abnormal Gait,Back Pain, Difficulty Walking,Joint Pain History of Falling (Recent or History of No ) Patient is completely paralyzed or No completely immobile Prosthesis or Orthotic Device Cane Mental Status Oriented to own ability Is patient on oxygen? No Does patient have OROZCO/SOB No Hx Sleep Apnea Yes CPAP/BIPAP use prescribed used intermittently Will Bring CPAP/BIPAP DOS Yes Currently Taking a Beta Mau Yes: Metoprolol Can You Climb a Flight of Stairs Without Yes SOB Hx Chest Pain No Hx SOB No Hx Syncope or Dizziness No Anti-Coagulant Therapy No Has a Hospitality Manager No Cardiac Testing No Hx Pacemaker/ICD No Pacemaker Rep Required? No Cardiac Clearance Received No Diet Type At Home Regular Dysphagia No Gastrointestinal Symptoms Fecal Incontinence Bladder Pattern Incontinent, Stress Urinary Catheter Present No Hx Urinary Self Catheterization No Diabetes No Patient No Lactating No Hx Drug Resistant Organism No Presence of External or Internal Medical Yes: Cecilio eye IOLs, right knee Devices prosthesis, lumbar hardware Marital Status / Lives With spouse,none Current Living Arrangements House Number of Floors (Floors) Two Floors Support System Child/Children Does the Patient Have Assistance After No: Son will stay w/patient at Surgery DC Patient Discharge Plan Description Return Home Comment Pt not advised on length of stay per surgeon Feels Safe in Current Environment Yes Been Physically Hurt or Threatened By a No Person in Current Environment Do you have thoughts of harming yourself None or others? Are you currently considering suicide? No Do you have a plan to hurt yourself or No Plan others? Do You Have Any Spiritual Beliefs That No May Affect Your HC Choices? Do You Have Any Cultural Practices That No May Affect Your HC Choices? Comment Mosque Who Can We Speak to About Patient's Care Family, friends Identifying Code for Release of Patient Declines to issue Information Health Care Proxy/Next of Kin Artie Crandall (son) Health Care Proxy Emergency Contact Name Ilene ([id number]) Emergency Contact Advance Directives? Yes Advance Directives on File No Requested Patient Bring Advanced Yes Directives DOS Power of Profiling Machine Setup Operator Yes Power of Profiling Machine Setup Operator Name Pt unsure who is on it PAC Instructions Bring CPAP/BIPAP,Do not shave/ clip surgical site,Durable medical equipment,Medications to take/avoid,Nasal antibiotic ,No ETOH/petroleum product on skin DOS,NPO,Post-op transportation,Pre-surgical wash,Sensory aids,Sturdy shoes /comfortable clothes,Do not bring valuables and remove jewelry
[2024-05-29] MEDS: ACETAMINOPHEN 325 MG TABLET 650 MG PO (10:22)
--- NOTE | 2024-05-29 10:23 | PC.NURSE ---
Pt received D/C orders. Home instructions given to pt & daughter w/ understanding Pt escorted by staff via W/C to waiting vehicle. D/C in stable post op status
--- NOTE | 2024-05-29 10:43 | PC.NURSE ---
Dayshift: Pt discharged by RN Tanya Shaw. PIV removed, L knee dressing CDI, all belongings with patient. Pt escorted to exit via wheelchair by PCT Luz Marina.
== END 2024-05-29 10:27 | disposition home or self-care (01) ==
LOC: OR 06:37 → AC 10:39
PROVIDERS: Family Provider Family Medicine; PCP Family Medicine; Referring Provider Orthopaedic Surgery; Visit Provider Orthopaedic Surgery
PROC: 0SRD0JZ Replacement of Left Knee Joint with Synthetic Substitute, Open Approach (ICD-10-PCS; CPT 27447; principal; 2024-05-28 07:45)
DX: M17.12 Unilateral primary osteoarthritis, left knee (principal); G89.18 Other acute postprocedural pain; M25.762 Osteophyte, left knee
CPT/HCPCS: 27447; 64450; 73560; 85014; 85018; 97116; 97162; 97165; 97530; 97535; C1776; C9290; J0171; J0330; J0690; J1100; J1170; J2405; J2704; J3010; J3410